=== PATIENT | male | born 2000 | race Caucasian/White ===

== ENCOUNTER 2022-03-31 14:42 | Emergency (ER) | payer MEDICAID ==
[~2022-03-31] VITALS: Ht 172.7 cm; Wt 65.8 kg
[2022-03-31 14:44] VITALS: BP 128/80
--- NOTE | 2022-03-31 14:44 | NUR ---
PT W/C ASSISTED TO BRITTNI Peralta
--- NOTE | 2022-03-31 14:45 | NUR ---
PT BIB [facility] C/O ANXIETY, PANIC ATTACK, PER MEDIC CARPAL PEDAL SPASMS. PT TACHYPNEIC AND APPEARS ANXIOUS. EDUCATED PT WITH BREATHING TECHNIQUES AND COPING MECHANISMS.
[2022-03-31] MEDS ORDERED: LORazepam 1 MG TAB PO ONE (14:50)
--- NOTE | 2022-03-31 15:57 | NUR ---
PT REPORTS IMPROVEMENT AFTER MEDICATION.
[2022-03-31 17:07] LABS: BASOPHILS % (AUTO) 0.2 % (0.0-2.0); HEMATOCRIT 44.8 % (36-52); HEMOGLOBIN 14.9 g/dL (12.0-18.0); LYMPHOCYTES # (AUTO) 1.1 K/uL (2.0-11.5); LYMPHOCYTES % (AUTO) 9.4 % (20.5-51.1); MEAN CORPUSCULAR HEMOGLOBIN 30 pg (27-31); MEAN CORPUSCULAR HGB CONC 33 g/dL (33-37); MEAN CORPUSCULAR VOLUME 89.9 fL (80-94); MONOCYTES # (AUTO) 0.7 K/uL (0.8-1.0); MONOCYTES % (AUTO) 5.9 % (1.7-9.3); NEUTROPHILS # (AUTO) 10.1 K/uL (1.8-7.7); NEUTROPHILS % (AUTO) 84.5 % (42.2-75.2); PLATELET COUNT (AUTO) 254 K/uL (140-450); RED BLOOD CELL COUNT(AUTO) 4.99 MIL/uL (4.20-6.10); RED CELL DISTRIBUTION WIDTH 13.3 % (11.6-13.7); WHITE BLOOD COUNT (AUTO) 11.9 K/uL (4.8-10.8)
[2022-03-31 17:18] LABS: ANION GAP 13.6 (8-16); CARBON DIOXIDE 25.2 mmol/L (21-32); CREATININE 0.9 mg/dL (0.6-1.3); POTASSIUM 3.8 mmol/L (3.5-5.1)
[2022-03-31] MEDS ORDERED: HYDR-635 PO (17:39)
[2022-03-31 17:48] VITALS: BP 112/76
--- NOTE | 2022-03-31 17:48 | NUR ---
Patient discharged with v/s stable. Written and verbal after care instructions given and explained. Patient alert, oriented and verbalized understanding of instructions. Ambulatory with steady gait. All questions addressed prior to discharge. ID band removed. Patient advised to follow up with PMD. Rx of HYDROXYZINE given. Patient educated on indication of medication including possible reaction and side effects. Opportunity to ask questions provided and answered.
== END 2022-03-31 17:48 | disposition home or self-care (01) ==
LOC: MED 14:42
DX: F41.9 Anxiety disorder, unspecified (principal)
CPT/HCPCS: 36415; 71045; 80048; 84484; 85025; 93005; 99285